=== PATIENT | male | born 1950 | race Hispanic/Latino ===

== ENCOUNTER 2017-03-31 19:52 | Inpatient (IN) | payer OTHER, MEDICARE ==
[~2017-03-31] VITALS: Ht 167.6 cm; Wt 71.7 kg
[2017-03-31 20:27] LABS: MEAN CORPUSCULAR HEMOGLOBIN 29.9 pg (27.0-33.0); MEAN CORPUSCULAR VOLUME 85.4 fL (79-99); PLATELET COUNT (AUTO) 189 K/uL (130-400); RED BLOOD CELL COUNT(AUTO) 3.86 MIL/uL (4.50-6.20); RED CELL DISTRIBUTION WIDTH 14.3 % (11.0-15.5); WHITE BLOOD COUNT (AUTO) 9.8 K/uL (4.8-10.8)
[2017-03-31 20:39] LABS: CARBON DIOXIDE 30 mmol/L (21-32); CHLORIDE 95 mmol/L (101-111); CREATININE 0.8 mg/dL (0.5-1.5); GLOMERULAR FILTR. RATE CALC 103 mL/min (>60); GLUCOSE,RANDOM 203 mg/dL (70-105); POTASSIUM 3.8 mmol/L (3.5-5.1); SODIUM SERUM 132 mmol/L (136-145); UREA NITROGEN, BLOOD 11 mg/dL (7-18)
[2017-03-31] MEDS ORDERED: AZITHROMYCIN 250 MG TABLET PO ONE (20:53)
[2017-03-31 20:54] LABS: ALANINE AMINOTRANSFERASE 53 U/L (12-78); ALBUMIN 2.6 g/dL (3.5-5.0); ASPARTATE AMINOTRANSFERASE 35 U/L (10-37); BILIRUBIN,TOTAL 0.6 mg/dL (0.2-1.0); CREATINE KINASE MB < 0.5 ng/mL (0.5-3.6); CREATINE KINASE, TOTAL 22 U/L (21-232); TOTAL PROTEIN, SERUM 6.8 g/dL (6.0-8.3)
[2017-03-31 21:13] LABS: BAND NEUTROPHILS % (MANUAL) 7 % (0-2); LYMPHOCYTES % (MANUAL) 3 % (22-44); MAN.DIFF COMMENT-IMPRESSION MANUAL DIFFERENTIAL; MONOCYTES % (MANUAL) 4 % (2-9); PLATELET MORPHOLOGY COMMENT ADEQUATE; SEGMENTED NEUTROPHILS % 86 % (40-70)
[2017-03-31 21:14] LABS: B-TYPE NATRIURETIC PEPTIDE 72 pg/mL (0-100)
[2017-03-31] MEDS ORDERED: IPRATROPIUM/ALBUTEROL SULFATE 3 ML SOLUTION IH ONE (21:19)
[2017-03-31] MEDS ORDERED: SODIUM CHLORIDE 0.9% 1000ML 1,000 ML IV ONE (21:46)
[2017-03-31] MEDS ORDERED: METHYLPREDNISOLONE SOD SUCC 125MG/2ML VIAL ONE (21:47)
[2017-03-31 22:05] LABS: APPEARANCE,URINE Clear (CLEAR); BILIRUBIN,URINE Negative (NEGATIVE); COLOR,URINE Dark Yellow (YELLOW); GLUCOSE, URINE (UA) TRACE mg/dL (NEGATIVE); KETONES,URINE Trace mg/dL (NEGATIVE); LEUKOCYTE ESTERASE ,URINE Negative (NEGATIVE); NITRATE,URINE Negative (NEGATIVE); OCCULT BLOOD,URINE Small (NEGATIVE); PH,URINE >=9.0 (5.0-8.0); PROTEIN,URINE 300 (NEGATIVE)
[2017-03-31 22:18] LABS: BACTERIA,URINE Rare /HPF (None Seen); SQUAMOUS EPITHELIAL CELL,UR 0-2 /LPF (0-2); WBC,URINE 0-1 /HPF (0-1)
[2017-03-31] MEDS ORDERED: ACETAMINOPHEN EXTRA STRENGTH 500 MG TABLET ONE (22:20)
[2017-03-31] MEDS ORDERED: CEFTRIAXONE SODIUM 1 GM ONE (22:38)
[2017-04-01] MEDS ORDERED: ACETAMINOPHEN-CODEINE 300/30MG TAB PO PRN (03:45)
[2017-04-01] MEDS ORDERED: HYDRALAZINE HCL 20 MG/ML VIAL IV PRN (03:45)
[2017-04-01] MEDS: IPRATROPIUM/ALBUTEROL SULFATE 3 ML SOLUTION IH SCH ×5 (05:26→23:21)
[2017-04-01 05:58] LABS: BASOPHILS % (AUTO) 0.4 % (0.0-5.0); EOSINOPHILS % (AUTO) 0.1 % (0.0-8.0); HEMATOCRIT 33.8 % (42-54); LYMPHOCYTES % (AUTO) 6.7 % (21.0-51.0); MEAN CORPUSCULAR HEMOGLOBIN 29.3 pg (27.0-33.0); MEAN CORPUSCULAR HGB CONC 34.2 g/dL (32.0-36.0); MEAN CORPUSCULAR VOLUME 85.5 fL (79-99); MONOCYTES % (AUTO) 1.6 % (3.0-13.0); NEUTROPHILS % (AUTO) 91.2 % (40.0-77.0); PLATELET COUNT (AUTO) 207 K/uL (130-400); RED BLOOD CELL COUNT(AUTO) 3.95 MIL/uL (4.50-6.20); RED CELL DISTRIBUTION WIDTH 14.9 % (11.0-15.5); WHITE BLOOD COUNT (AUTO) 7.2 K/uL (4.8-10.8)
[2017-04-01 06:27] LABS: CREATININE 0.7 mg/dL (0.5-1.5); POTASSIUM 4.4 mmol/L (3.5-5.1)
[2017-04-01] MEDS ORDERED: INSULIN LISPRO 100 UNIT/ML 3ML SQ SCH (07:30)
[2017-04-01] MEDS ORDERED: LEVOFLOXACIN 500 MG/D5W 100 ML 100 ML ONE (08:35)
[2017-04-01] MEDS: ENOXAPARIN SODIUM 40 MG/0.4 ML SYRINGE SQ SCH (09:00)
[2017-04-01] MEDS ORDERED: BENZONATATE 100 MG CAPSULE PO ONE (09:54)
[2017-04-01] MEDS ORDERED: PANTOPRAZOLE SODIUM 40 MG TABLET.DR PO ONE (09:55)
[2017-04-01] MEDS ORDERED: ENOXAPARIN SODIUM 40 MG/0.4 ML SYRINGE SQ ONE (09:55)
[2017-04-01 12:30] VITALS: BP 140/80
[2017-04-01] MEDS ORDERED: GLUCAGON 1MG KIT 1 MG ML IM PRN (13:30)
[2017-04-01] MEDS ORDERED: DEXTROSE 50%-WATER 50 ML DISP.SYRIN IV PRN (13:30)
[2017-04-01] MEDS ORDERED: INSULIN HUMULIN R 100 UNIT/ML 3ML ONE (13:33)
[2017-04-01] MEDS: BENZONATATE 100 MG CAPSULE PO SCH ×3 (13:36→20:35)
[2017-04-01 15:46] VITALS: BP 149/79
[2017-04-01] MEDS ORDERED: ATOR40TA69 PO (16:47)
[2017-04-01] MEDS ORDERED: GLIP10TA9 PO (16:47)
[2017-04-01] MEDS ORDERED: SERT100T12 PO (16:47)
[2017-04-01] MEDS ORDERED: LISI10TA7 PO (16:47)
[2017-04-01] MEDS ORDERED: ACET-66 PO (16:47)
[2017-04-01] MEDS ORDERED: INSLAN SQ (16:47)
[2017-04-01] MEDS ORDERED: FLUT1DIS3 IH (16:50)
[2017-04-01] MEDS ORDERED: ALBU8.5H8 IH (16:50)
[2017-04-01] MEDS: INSULIN HUMULIN R 100 UNIT/ML 3ML SQ SCH ×3 (17:00→20:46)
[2017-04-01] MEDS ORDERED: DUONEB IH (17:01)
[2017-04-01] MEDS ORDERED: [UNRECOGNIZED DRUG - OTHER] PO (17:08)
[2017-04-01] MEDS ORDERED: CHLO1TAB PO (17:08)
[2017-04-01] MEDS ORDERED: METF10004 PO (17:17)
[2017-04-01] MEDS ORDERED: FLU VACC QS2017-18 36MOS UP/PF 60 MCG/0.5 ML ML IM SCH (18:45)
[2017-04-01] MEDS ORDERED: PNEUMOCOCCAL VACCINE POLYVALENT 0.5 ML/VIAL [PPV] IM SCH (18:45)
[2017-04-01 19:00] VITALS: BP 146/71
[2017-04-01] MEDS: PANTOPRAZOLE SODIUM 40 MG TABLET.DR PO SCH (20:30)
[2017-04-01] MEDS: AZITHROMYCIN 500MG+NS 250ML 250 ML IV SCH (20:35)
[2017-04-01] MEDS: METHYLPREDNISOLONE SOD SUCC 125MG/2ML VIAL IV SCH ×2 (20:35→21:35)
[2017-04-01 23:00] VITALS: BP 149/79
[2017-04-01] MEDS ORDERED: CEFTRIAXONE SODIUM 1 GM ONE (23:12)
[2017-04-01] MEDS ORDERED: SODIUM CHLORIDE 0.9% 100 ML IV ONE (23:16)
[2017-04-01] MEDS: CEFTRIAXONE 1GM/D5W 50ML 50 ML IV SCH (23:19)
[2017-04-02] MEDS: IPRATROPIUM/ALBUTEROL SULFATE 3 ML SOLUTION IH SCH ×6 (02:12→21:21)
[2017-04-02 03:00] VITALS: BP 136/65
[2017-04-02] MEDS: INSULIN HUMULIN R 100 UNIT/ML 3ML SQ SCH ×7 (05:50→20:12)
[2017-04-02 08:05] VITALS: BP 143/74
[2017-04-02] MEDS: BENZONATATE 100 MG CAPSULE PO SCH ×3 (08:49→20:05)
[2017-04-02] MEDS: METHYLPREDNISOLONE SOD SUCC 125MG/2ML VIAL IV SCH ×2 (08:49→20:04)
[2017-04-02] MEDS: ENOXAPARIN SODIUM 40 MG/0.4 ML SYRINGE SQ SCH (08:51)
[2017-04-02] MEDS: PANTOPRAZOLE SODIUM 40 MG TABLET.DR PO SCH (08:51)
[2017-04-02 11:54] VITALS: BP 157/88
[2017-04-02 16:28] VITALS: BP 155/86
[2017-04-02 19:00] VITALS: BP 164/74
[2017-04-02] MEDS: AZITHROMYCIN 500MG+NS 250ML 250 ML IV SCH (20:04)
[2017-04-02] MEDS: CEFTRIAXONE 1GM/D5W 50ML 50 ML IV SCH (20:05)
[2017-04-02 23:00] VITALS: BP 154/92
[2017-04-03] MEDS: IPRATROPIUM/ALBUTEROL SULFATE 3 ML SOLUTION IH SCH ×6 (01:53→22:00)
[2017-04-03 03:00] VITALS: BP 162/80
[2017-04-03 05:50] LABS: MEAN CORPUSCULAR HEMOGLOBIN 29.5 pg (27.0-33.0); MEAN CORPUSCULAR VOLUME 86.6 fL (79-99); PLATELET COUNT (AUTO) 235 K/uL (130-400); RED CELL DISTRIBUTION WIDTH 14.7 % (11.0-15.5); WHITE BLOOD COUNT (AUTO) 5.2 K/uL (4.8-10.8)
[2017-04-03 05:56] LABS: CREATININE 0.6 mg/dL (0.5-1.5); POTASSIUM 4.2 mmol/L (3.5-5.1)
[2017-04-03] MEDS: INSULIN HUMULIN R 100 UNIT/ML 3ML SQ SCH ×6 (06:17→20:33)
[2017-04-03 08:00] VITALS: BP_SYST 154; BP_SYST 155; BP_DIAS 77; BP_DIAS 88
[2017-04-03] MEDS: BENZONATATE 100 MG CAPSULE PO SCH ×3 (09:19→20:21)
[2017-04-03] MEDS: PANTOPRAZOLE SODIUM 40 MG TABLET.DR PO SCH (09:19)
[2017-04-03] MEDS: METHYLPREDNISOLONE SOD SUCC 125MG/2ML VIAL IV SCH (09:19)
[2017-04-03] MEDS: ENOXAPARIN SODIUM 40 MG/0.4 ML SYRINGE SQ SCH (09:20)
[2017-04-03 11:00] VITALS: BP 155/77
[2017-04-03] MEDS ORDERED: ACETAMINOPHEN EXTRA STRENGTH 500 MG TABLET PO PRN (11:00)
[2017-04-03 16:00] VITALS: BP 121/79
[2017-04-03] MEDS: METFORMIN HCL 500 MG TAB.SR.24H PO SCH (17:18)
[2017-04-03 19:00] VITALS: BP 151/74
[2017-04-03] MEDS ORDERED: INSULIN GLARGINE 100 UNITS/ML 10 ML VIAL SQ ONE (20:12)
[2017-04-03] MEDS: AZITHROMYCIN 500MG+NS 250ML 250 ML IV SCH (20:21)
[2017-04-03] MEDS: METHYLPREDNISOLONE SOD SUCC 40MG/ML 1ML IVP SCH (20:21)
[2017-04-03] MEDS ORDERED: INSULIN GLARGINE 100 UNITS/ML 10 ML VIAL SQ SCH (21:00)
[2017-04-03] MEDS ORDERED: CEFTRIAXONE SODIUM 1 GM IVP SCH (21:00)
[2017-04-03] MEDS ORDERED: ATORVASTATIN CALCIUM 40 MG TABLET PO SCH (21:00)
[2017-04-03 23:00] VITALS: BP 147/79
[2017-04-04] MEDS ORDERED: ALBUTEROL SULFATE 0.083% 2.5 MG/3 ML INH IH ONE (01:53)
[2017-04-04] MEDS ORDERED: IPRATROPIUM 0.5 MG/2.5 ML INH IH ONE (01:53)
[2017-04-04] MEDS: IPRATROPIUM/ALBUTEROL SULFATE 3 ML SOLUTION IH SCH ×3 (01:59→10:39)
[2017-04-04 03:00] VITALS: BP 140/69
[2017-04-04] MEDS: INSULIN HUMULIN R 100 UNIT/ML 3ML SQ SCH ×4 (06:14→12:55)
[2017-04-04 08:00] VITALS: BP 134/63
[2017-04-04] MEDS: METFORMIN HCL 500 MG TAB.SR.24H PO SCH (08:34)
[2017-04-04] MEDS: BENZONATATE 100 MG CAPSULE PO SCH (08:34)
[2017-04-04] MEDS: PANTOPRAZOLE SODIUM 40 MG TABLET.DR PO SCH (08:34)
[2017-04-04] MEDS: ENOXAPARIN SODIUM 40 MG/0.4 ML SYRINGE SQ SCH (08:35)
[2017-04-04] MEDS: METHYLPREDNISOLONE SOD SUCC 40MG/ML 1ML IVP SCH (08:35)
[2017-04-04] MEDS ORDERED: SERTRALINE HCL 50 MG TABLET PO SCH (09:00)
[2017-04-04] MEDS ORDERED: LISINOPRIL 10 MG TABLET PO SCH (09:00)
[2017-04-04 12:08] VITALS: BP 147/65
== END 2017-04-04 14:00 | disposition home or self-care (01) | DRG 193 ==
LOC: EDH 19:52 → EDHIP 23:07 → 3BH 04-01 12:22
PROVIDERS: ADMIT Family Medicine; ATTEND Family Medicine
PROC: 3E0234Z Introduction of Serum, Toxoid and Vaccine into Muscle, Percutaneous Approach (ICD-10-PCS; principal; 2017-04-01)
DX: J18.9 Pneumonia, unspecified organism (principal); J96.20 Acute and chronic respiratory failure, unspecified whether with hypoxia or hypercapnia; Z99.81 Dependence on supplemental oxygen; J44.0 Chronic obstructive pulmonary disease with (acute) lower respiratory infection; J44.1 Chronic obstructive pulmonary disease with (acute) exacerbation; E87.1 Hypo-osmolality and hyponatremia; J20.9 Acute bronchitis, unspecified; I25.10 Atherosclerotic heart disease of native coronary artery without angina pectoris; Z95.1 Presence of aortocoronary bypass graft; E11.65 Type 2 diabetes mellitus with hyperglycemia; F17.200 Nicotine dependence, unspecified, uncomplicated; Z88.0 Allergy status to penicillin; Z89.422 Acquired absence of other left toe(s); Z23 Encounter for immunization
CPT/HCPCS: 36415; 71010; 80048; 80053; 81001; 82550; 82553; 82947; 82948; 83605; 83880; 84484; 85025; 85027; 87040; 87804; 90732; 93005; 94640; 94664; A4218; G0008; G0009; J0456; J0696; J1650; J1815; J1956; J2920; J2930; J7030; Q2038

== ENCOUNTER 2018-03-25 10:45 | Emergency (ER) | payer OTHER, MEDICARE ==
[~2018-03-25 10:45] MED LIST: ACET-66 PO; ALBU8.5H8 IH; ATOR40TA69 PO; CHLO1TAB PO; DUONEB IH; FLUT1DIS3 IH; GLIP10TA9 PO; INSLAN SQ; LISI10TA7 PO; METF-446 PO; SERT100T12 PO; [UNRECOGNIZED DRUG - OTHER] PO
[2018-03-25 11:22] LABS: BASOPHILS % (AUTO) 0.9 % (0.0-5.0); EOSINOPHILS % (AUTO) 1.8 % (0.0-8.0); HEMATOCRIT 42.7 % (42-54); LYMPHOCYTES % (AUTO) 19.9 % (21.0-51.0); MEAN CORPUSCULAR HEMOGLOBIN 28.7 pg (27.0-33.0); MEAN CORPUSCULAR HGB CONC 32.8 g/dL (32.0-36.0); MEAN CORPUSCULAR VOLUME 87.7 fL (79-99); MONOCYTES % (AUTO) 9.8 % (3.0-13.0); NEUTROPHILS % (AUTO) 67.6 % (40.0-77.0); PLATELET COUNT (AUTO) 126 K/uL (130-400); RED BLOOD CELL COUNT(AUTO) 4.86 MIL/uL (4.50-6.20); RED CELL DISTRIBUTION WIDTH 14.2 % (11.0-15.5); WHITE BLOOD COUNT (AUTO) 5.5 K/uL (4.8-10.8)
[2018-03-25 11:42] LABS: CREATININE 0.9 mg/dL (0.5-1.5); POTASSIUM 4.9 mmol/L (3.5-5.1)
[2018-03-25 11:44] LABS: INR 0.99 (0.85-1.15); PARTIAL THROMBOPLASTIN TIME 29.9 SEC (26.3-35.5); PROTHROMBIN TIME 10.4 SEC (9.6-11.6)
[2018-03-25 11:48] LABS: ALBUMIN 3.7 g/dL (3.5-5.0); BILIRUBIN,TOTAL 0.5 mg/dL (0.2-1.0); TOTAL PROTEIN, SERUM 7.5 g/dL (6.0-8.3)
[2018-03-25 11:53] LABS: B-TYPE NATRIURETIC PEPTIDE 39 pg/mL (0-100)
[2018-03-25] MEDS ORDERED: METHYLPREDNISOLONE SOD SUCC 125MG/2ML VIAL ONE (12:39)
[2018-03-25] MEDS ORDERED: IPRATROPIUM/ALBUTEROL SULFATE 3 ML SOLUTION IH ONE (12:43)
[2018-03-25] MEDS ORDERED: LEVOFLOXACIN 500 MG TABLET ONE (15:59)
== END 2018-03-25 16:52 | disposition home or self-care (01) ==
LOC: EDH 10:45
DX: J44.1 Chronic obstructive pulmonary disease with (acute) exacerbation (principal); Z88.0 Allergy status to penicillin; Z72.0 Tobacco use
CPT/HCPCS: 36415; 71045; 80053; 82550; 83880; 84484; 85025; 85610; 85730; 93005; 94640; 96374; 99284; J2930

== ENCOUNTER 2022-03-09 12:34 | Inpatient (IN) | payer OTHER, MEDICARE ==
[~2022-03-09] VITALS: Ht 162.6 cm; Wt 70.9 kg
[~2022-03-09 12:34] MED LIST changes: +LISI10TA24 PO; -LISI10TA7 PO; +SERT-440 PO; -SERT100T12 PO
[2022-03-09 13:48] LABS: BASOPHILS % (AUTO) 0.3 % (0.0-5.0); EOSINOPHILS % (AUTO) 0.3 % (0.0-8.0); HEMATOCRIT 39.7 % (42-54); MEAN CORPUSCULAR HEMOGLOBIN 27.8 pg (27.0-33.0); MEAN CORPUSCULAR HGB CONC 32.5 g/dL (32.0-36.0); MEAN CORPUSCULAR VOLUME 85.6 fL (79-99); MONOCYTES % (AUTO) 10.9 % (3.0-13.0); NEUTROPHILS % (AUTO) 82.1 % (40.0-77.0); PLATELET COUNT (AUTO) 117 K/uL (130-400); RED BLOOD CELL COUNT(AUTO) 4.64 MIL/uL (4.50-6.20); RED CELL DISTRIBUTION WIDTH 14.7 % (11.0-15.5); WHITE BLOOD COUNT (AUTO) 6.7 K/uL (4.8-10.8)
[2022-03-09 13:55] LABS: CREATININE 0.9 mg/dL (0.5-1.5); POTASSIUM 4.6 mmol/L (3.5-5.1)
[2022-03-09] MEDS ORDERED: LEVOFLOXACIN 500 MG TABLET PO SCH (14:00)
[2022-03-09] MEDS ORDERED: IPRATROPIUM/ALBUTEROL SULFATE 3 ML SOLUTION IH ONE ×2 (14:00)
[2022-03-09] MEDS ORDERED: SOLU-MEDROL 125MG VIAL IVP ONE (14:00)
[2022-03-09 14:04] LABS: ALBUMIN 3.5 g/dL (3.5-5.0); TOTAL PROTEIN, SERUM 7.4 g/dL (6.0-8.3)
[2022-03-09 18:50] LABS: ABG HCO3 29.6 mmol/L (21.0-28.0); ABG OXYGEN SATURATION 95.1 % (95.0-99.0); ABG PCO2 58 mmHg (35-48)
[2022-03-09] MEDS ORDERED: ONDANSETRON 4MG INJ IV PRN (19:00)
[2022-03-09] MEDS ORDERED: LACTULOSE 20 GM/30 ML UDCUP PO PRN (19:00)
[2022-03-09] MEDS ORDERED: FUROSEMIDE 40MG VIAL IV ONE (19:00)
[2022-03-09] MEDS ORDERED: ACETAMINOPHEN 325 MG TAB PO PRN ×2 (19:00)
[2022-03-09 19:01] LABS: APPEARANCE,URINE CLEAR (CLEAR); BILIRUBIN,URINE NEGATIVE (NEGATIVE); COLOR,URINE YELLOW (YELLOW); GLUCOSE, URINE (UA) 70 mg/dL (NEGATIVE); KETONES,URINE NEGATIVE (NEGATIVE); LEUKOCYTE ESTERASE ,URINE NEGATIVE Leu/uL (NEGATIVE); NITRATE,URINE NEGATIVE (NEGATIVE); OCCULT BLOOD,URINE MODERATE (NEGATIVE); PH,URINE 5.5 (5.0-8.0); PROTEIN,URINE 100 mg/dL (NEGATIVE); UROBILINOGEN,URINE 0.2 mg/dL (0.2-1.0)
[2022-03-09 19:07] LABS: BACTERIA,URINE RARE /HPF (None Seen); MUCUS,URINE RARE LPF (None Seen); OTHER CASTS, URINE 1 /LPF (None Seen); SQUAMOUS EPITHELIAL CELL,UR RARE /HPF (0-2); WBC,URINE 0-1 /HPF (0-1)
[2022-03-09] MEDS: FAMOTIDINE 20MG TAB PO SCH (20:26)
[2022-03-09] MEDS: LEVOFLOXACIN 500 MG/D5W 100 ML 100 ML IV SCH (20:26)
[2022-03-09] MEDS: OSELTAMIVIR PHOSPHATE 75 MG CAP PO SCH (20:26)
[2022-03-09] MEDS: SOLU-MEDROL 40MG VIAL IVP SCH (20:26)
[2022-03-09] MEDS: INSULIN HUMULIN R 100 UNIT/ML 3ML SQ SCH (20:44)
[2022-03-09] MEDS ORDERED: ATOR20TA65 PO (20:49)
[2022-03-09] MEDS ORDERED: GLIP5TAB11 PO (20:49)
[2022-03-09] MEDS ORDERED: MONT-39 PO (20:49)
[2022-03-09] MEDS ORDERED: IPRA0.2S54 IH (20:52)
[2022-03-09] MEDS: IPRATROPIUM/ALBUTEROL SULFATE 3 ML SOLUTION IH SCH (21:03)
[2022-03-10] MEDS: SOLU-MEDROL 40MG VIAL IVP SCH ×4 (01:11→19:00)
[2022-03-10] MEDS: IPRATROPIUM/ALBUTEROL SULFATE 3 ML SOLUTION IH SCH ×5 (01:20→22:36)
[2022-03-10 06:29] LABS: HEMATOCRIT 38.2 % (42-54); LYMPHOCYTES % (AUTO) 5.7 % (21.0-51.0); MEAN CORPUSCULAR HEMOGLOBIN 27.7 pg (27.0-33.0); MEAN CORPUSCULAR HGB CONC 32.5 g/dL (32.0-36.0); MEAN CORPUSCULAR VOLUME 85.5 fL (79-99); MONOCYTES % (AUTO) 4.2 % (3.0-13.0); NEUTROPHILS % (AUTO) 89.7 % (40.0-77.0); PLATELET COUNT (AUTO) 112 K/uL (130-400); RED BLOOD CELL COUNT(AUTO) 4.47 MIL/uL (4.50-6.20); RED CELL DISTRIBUTION WIDTH 14.4 % (11.0-15.5); WHITE BLOOD COUNT (AUTO) 4.5 K/uL (4.8-10.8)
[2022-03-10 06:33] LABS: CREATININE 1.1 mg/dL (0.5-1.5); POTASSIUM 4.7 mmol/L (3.5-5.1)
[2022-03-10] MEDS: INSULIN HUMULIN R 100 UNIT/ML 3ML SQ SCH ×6 (06:45→21:16)
[2022-03-10 09:00] VITALS: BP 119/64
[2022-03-10] MEDS: ADVIAR IH SCH (09:00)
[2022-03-10] MEDS: FAMOTIDINE 20MG TAB PO SCH ×2 (09:10→21:12)
[2022-03-10] MEDS: ENOXAPARIN SODIUM 40 MG/0.4 ML SYRINGE SQ SCH (09:10)
[2022-03-10] MEDS: BUPROPION HCL 150 MG TABLET.SA PO SCH (09:10)
[2022-03-10] MEDS: OSELTAMIVIR PHOSPHATE 75 MG CAP PO SCH ×2 (09:10→21:12)
[2022-03-10] MEDS: NICOTINE 14 MG/ 24 HR PATCH TD SCH (10:17)
[2022-03-10] MEDS: LISINOPRIL 10 MG TABLET PO SCH (10:18)
[2022-03-10] MEDS: ATORVASTATIN 20 MG TABLET PO SCH (10:18)
[2022-03-10] MEDS: MONTELUKAST SODIUM 10 MG TAB PO SCH (10:18)
[2022-03-10] MEDS: SERTRALINE HCL 50 MG TABLET PO SCH (10:18)
[2022-03-10 11:00] VITALS: BP 168/53
[2022-03-10] MEDS ORDERED: VANCOMYCIN PROTOCOL PER PHARMACY IV SCH (11:00)
[2022-03-10] MEDS: VANCOMYCIN 1G/250ML KIT 250 ML IV SCH ×2 (13:26→21:12)
[2022-03-10 16:00] VITALS: BP 118/55
[2022-03-10] MEDS: LEVOFLOXACIN 500 MG/D5W 100 ML 100 ML IV SCH (19:30)
[2022-03-10] MEDS ORDERED: 0.9% NACL 250ML 250 ML ONE (21:06)
[2022-03-10 21:15] VITALS: BP 110/59
[2022-03-10] MEDS: INSULIN GLARGINE 100 UNITS/ML 10 ML VIAL SQ SCH (21:15)
[2022-03-10 23:42] VITALS: BP 115/63
[2022-03-11] MEDS: SOLU-MEDROL 40MG VIAL IVP SCH ×4 (02:06→18:08)
[2022-03-11] MEDS: IPRATROPIUM/ALBUTEROL SULFATE 3 ML SOLUTION IH SCH ×6 (02:22→22:55)
[2022-03-11 04:37] VITALS: BP 102/71
[2022-03-11 05:08] LABS: HEMATOCRIT 34.4 % (42-54); LYMPHOCYTES % (AUTO) 7.2 % (21.0-51.0); MEAN CORPUSCULAR HEMOGLOBIN 28.1 pg (27.0-33.0); MEAN CORPUSCULAR HGB CONC 32.8 g/dL (32.0-36.0); MEAN CORPUSCULAR VOLUME 85.6 fL (79-99); MONOCYTES % (AUTO) 9.7 % (3.0-13.0); NEUTROPHILS % (AUTO) 82.6 % (40.0-77.0); PLATELET COUNT (AUTO) 114 K/uL (130-400); RED BLOOD CELL COUNT(AUTO) 4.02 MIL/uL (4.50-6.20); RED CELL DISTRIBUTION WIDTH 14.1 % (11.0-15.5); WHITE BLOOD COUNT (AUTO) 6.4 K/uL (4.8-10.8)
[2022-03-11 05:19] LABS: CREATININE 0.7 mg/dL (0.5-1.5); MAGNESIUM 2.2 mg/dL (1.80-2.40); PHOSPHORUS 4.3 mg/dL (2.5-4.9); POTASSIUM 5.2 mmol/L (3.5-5.1)
[2022-03-11] MEDS: INSULIN HUMULIN R 100 UNIT/ML 3ML SQ SCH ×7 (05:23→20:36)
[2022-03-11 05:55] LABS: B-TYPE NATRIURETIC PEPTIDE < 5 pg/mL (0-100)
[2022-03-11 07:05] VITALS: BP 106/57
[2022-03-11] MEDS: VANCOMYCIN 1G/250ML KIT 250 ML IV SCH ×2 (09:38→20:36)
[2022-03-11] MEDS: ATORVASTATIN 20 MG TABLET PO SCH (09:39)
[2022-03-11] MEDS: MONTELUKAST SODIUM 10 MG TAB PO SCH (09:39)
[2022-03-11] MEDS: BUPROPION HCL 150 MG TABLET.SA PO SCH (09:39)
[2022-03-11] MEDS: FAMOTIDINE 20MG TAB PO SCH ×2 (09:39→19:53)
[2022-03-11] MEDS: NICOTINE 14 MG/ 24 HR PATCH TD SCH (09:39)
[2022-03-11] MEDS: SERTRALINE HCL 50 MG TABLET PO SCH (09:39)
[2022-03-11] MEDS: OSELTAMIVIR PHOSPHATE 75 MG CAP PO SCH ×2 (09:39→19:53)
[2022-03-11] MEDS: LISINOPRIL 10 MG TABLET PO SCH (09:40)
[2022-03-11] MEDS: ENOXAPARIN SODIUM 40 MG/0.4 ML SYRINGE SQ SCH (09:40)
[2022-03-11] MEDS: ADVIAR IH SCH (09:41)
[2022-03-11 11:05] VITALS: BP 101/48
[2022-03-11 15:00] VITALS: BP 119/63
[2022-03-11] MEDS: LEVOFLOXACIN 500 MG/D5W 100 ML 100 ML IV SCH (19:53)
[2022-03-11 20:00] VITALS: BP 120/59
[2022-03-11] MEDS: INSULIN GLARGINE 100 UNITS/ML 10 ML VIAL SQ SCH (20:35)
[2022-03-12 00:37] VITALS: BP 113/59
[2022-03-12] MEDS: IPRATROPIUM/ALBUTEROL SULFATE 3 ML SOLUTION IH SCH ×6 (02:53→23:10)
[2022-03-12 04:00] VITALS: BP 122/56
[2022-03-12 05:07] LABS: HEMATOCRIT 33.3 % (42-54); LYMPHOCYTES % (AUTO) 9.2 % (21.0-51.0); MEAN CORPUSCULAR HEMOGLOBIN 28.1 pg (27.0-33.0); MEAN CORPUSCULAR VOLUME 85.2 fL (79-99); NEUTROPHILS % (AUTO) 83.3 % (40.0-77.0); PLATELET COUNT (AUTO) 108 K/uL (130-400); RED BLOOD CELL COUNT(AUTO) 3.91 MIL/uL (4.50-6.20); RED CELL DISTRIBUTION WIDTH 14.2 % (11.0-15.5); WHITE BLOOD COUNT (AUTO) 4.3 K/uL (4.8-10.8)
[2022-03-12] MEDS: SOLU-MEDROL 40MG VIAL IVP SCH ×3 (05:13→15:45)
[2022-03-12] MEDS: INSULIN HUMULIN R 100 UNIT/ML 3ML SQ SCH ×7 (05:28→20:05)
[2022-03-12 05:37] LABS: CREATININE 0.6 mg/dL (0.5-1.5); MAGNESIUM 1.9 mg/dL (1.80-2.40); PHOSPHORUS 3.9 mg/dL (2.5-4.9); POTASSIUM 4.7 mmol/L (3.5-5.1)
[2022-03-12 05:38] LABS: B-TYPE NATRIURETIC PEPTIDE 33 pg/mL (0-100)
[2022-03-12 07:00] VITALS: BP 126/60
[2022-03-12] MEDS: ADVIAR IH SCH (09:00)
[2022-03-12] MEDS: ENOXAPARIN SODIUM 40 MG/0.4 ML SYRINGE SQ SCH (10:27)
[2022-03-12] MEDS: SERTRALINE HCL 50 MG TABLET PO SCH (10:28)
[2022-03-12] MEDS: ATORVASTATIN 20 MG TABLET PO SCH (10:28)
[2022-03-12] MEDS: NICOTINE 14 MG/ 24 HR PATCH TD SCH (10:28)
[2022-03-12] MEDS: BUPROPION HCL 150 MG TABLET.SA PO SCH (10:28)
[2022-03-12] MEDS: FAMOTIDINE 20MG TAB PO SCH ×2 (10:28→19:56)
[2022-03-12] MEDS: OSELTAMIVIR PHOSPHATE 75 MG CAP PO SCH ×2 (10:28→19:56)
[2022-03-12] MEDS: MONTELUKAST SODIUM 10 MG TAB PO SCH (10:28)
[2022-03-12] MEDS: VANCOMYCIN 1G/250ML KIT 250 ML IV SCH ×2 (10:40→19:56)
[2022-03-12] MEDS: LISINOPRIL 10 MG TABLET PO SCH (10:41)
[2022-03-12 11:00] VITALS: BP 144/68
[2022-03-12 15:05] VITALS: BP 112/73
[2022-03-12] MEDS: LEVOFLOXACIN 500 MG/D5W 100 ML 100 ML IV SCH (19:56)
[2022-03-12 20:00] VITALS: BP 145/58
[2022-03-12] MEDS: INSULIN GLARGINE 100 UNITS/ML 10 ML VIAL SQ SCH (20:05)
[2022-03-13] VITALS: BP 108/55
[2022-03-13] MEDS: IPRATROPIUM/ALBUTEROL SULFATE 3 ML SOLUTION IH SCH ×6 (02:21→22:43)
[2022-03-13 04:00] VITALS: BP 118/52
[2022-03-13] MEDS: SOLU-MEDROL 40MG VIAL IVP SCH ×3 (04:55→21:12)
[2022-03-13] MEDS: INSULIN HUMULIN R 100 UNIT/ML 3ML SQ SCH ×7 (06:11→19:47)
[2022-03-13 07:05] VITALS: BP 116/74
[2022-03-13] MEDS: ADVIAR IH SCH (09:00)
[2022-03-13] MEDS: ENOXAPARIN SODIUM 40 MG/0.4 ML SYRINGE SQ SCH (09:43)
[2022-03-13] MEDS: NICOTINE 14 MG/ 24 HR PATCH TD SCH (09:44)
[2022-03-13] MEDS: SERTRALINE HCL 50 MG TABLET PO SCH (09:45)
[2022-03-13] MEDS: ATORVASTATIN 20 MG TABLET PO SCH (09:46)
[2022-03-13] MEDS: LISINOPRIL 10 MG TABLET PO SCH (09:46)
[2022-03-13] MEDS: MONTELUKAST SODIUM 10 MG TAB PO SCH (09:46)
[2022-03-13] MEDS: OSELTAMIVIR PHOSPHATE 75 MG CAP PO SCH ×2 (09:46→19:34)
[2022-03-13] MEDS: FAMOTIDINE 20MG TAB PO SCH ×2 (09:46→19:34)
[2022-03-13] MEDS: VANCOMYCIN 1.25 GM/250 ML BAG 250 ML IV SCH ×2 (10:23→21:10)
[2022-03-13 11:05] VITALS: BP 111/78
[2022-03-13 15:05] VITALS: BP 129/69
[2022-03-13] MEDS: LEVOFLOXACIN 500 MG/D5W 100 ML 100 ML IV SCH (19:34)
[2022-03-13] MEDS: INSULIN GLARGINE 100 UNITS/ML 10 ML VIAL SQ SCH (19:49)
[2022-03-13 21:11] VITALS: BP 129/64
[2022-03-14 00:14] VITALS: BP 126/60
[2022-03-14] MEDS: IPRATROPIUM/ALBUTEROL SULFATE 3 ML SOLUTION IH SCH ×6 (02:22→22:22)
[2022-03-14 04:40] VITALS: BP 108/60
[2022-03-14] MEDS: INSULIN HUMULIN R 100 UNIT/ML 3ML SQ SCH ×7 (05:25→20:36)
[2022-03-14] MEDS: SOLU-MEDROL 40MG VIAL IVP SCH ×3 (06:10→22:31)
[2022-03-14 06:29] LABS: HEMATOCRIT 35.7 % (42-54); LYMPHOCYTES % (AUTO) 10.8 % (21.0-51.0); MEAN CORPUSCULAR HGB CONC 32.8 g/dL (32.0-36.0); MEAN CORPUSCULAR VOLUME 85.4 fL (79-99); MONOCYTES % (AUTO) 3.6 % (3.0-13.0); NEUTROPHILS % (AUTO) 85.1 % (40.0-77.0); PLATELET COUNT (AUTO) 115 K/uL (130-400); RED BLOOD CELL COUNT(AUTO) 4.18 MIL/uL (4.50-6.20); RED CELL DISTRIBUTION WIDTH 13.8 % (11.0-15.5); WHITE BLOOD COUNT (AUTO) 4.2 K/uL (4.8-10.8)
[2022-03-14 06:37] LABS: HEMOGLOBIN A1C 7.6 % (4.0-6.0)
[2022-03-14 06:54] LABS: CREATININE 0.7 mg/dL (0.5-1.5); POTASSIUM 5.2 mmol/L (3.5-5.1); TOTAL PROTEIN, SERUM 6.3 g/dL (6.0-8.3)
[2022-03-14 08:00] VITALS: BP 112/74
[2022-03-14] MEDS: ADVIAR IH SCH (09:00)
[2022-03-14] MEDS: MONTELUKAST SODIUM 10 MG TAB PO SCH (09:40)
[2022-03-14] MEDS: VANCOMYCIN 1.25 GM/250 ML BAG 250 ML IV SCH (09:40)
[2022-03-14] MEDS: OSELTAMIVIR PHOSPHATE 75 MG CAP PO SCH (09:41)
[2022-03-14] MEDS: SERTRALINE HCL 50 MG TABLET PO SCH (09:41)
[2022-03-14] MEDS: LISINOPRIL 10 MG TABLET PO SCH (09:41)
[2022-03-14] MEDS: ATORVASTATIN 20 MG TABLET PO SCH (09:41)
[2022-03-14] MEDS: ENOXAPARIN SODIUM 40 MG/0.4 ML SYRINGE SQ SCH (09:41)
[2022-03-14] MEDS: FAMOTIDINE 20MG TAB PO SCH ×2 (09:42→20:32)
[2022-03-14] MEDS: NICOTINE 14 MG/ 24 HR PATCH TD SCH (09:42)
[2022-03-14 11:59] VITALS: BP 136/58
[2022-03-14 16:00] VITALS: BP 119/62
[2022-03-14] MEDS: LEVOFLOXACIN 500 MG/D5W 100 ML 100 ML IV SCH (20:32)
[2022-03-14] MEDS: INSULIN GLARGINE 100 UNITS/ML 10 ML VIAL SQ SCH (20:37)
[2022-03-14 20:38] VITALS: BP 128/62
[2022-03-15 00:16] VITALS: BP 101/56
[2022-03-15] MEDS: IPRATROPIUM/ALBUTEROL SULFATE 3 ML SOLUTION IH SCH ×4 (02:11→14:00)
[2022-03-15 03:51] VITALS: BP 110/56
[2022-03-15] MEDS: SOLU-MEDROL 40MG VIAL IVP SCH ×2 (05:38→14:26)
[2022-03-15] MEDS: INSULIN HUMULIN R 100 UNIT/ML 3ML SQ SCH ×6 (05:57→16:29)
[2022-03-15] MEDS ORDERED: IPRATROPIUM/ALBUTEROL SULFATE 3 ML SOLUTION IH ONE (06:13)
[2022-03-15 08:00] VITALS: BP 107/51
[2022-03-15] MEDS: ADVIAR IH SCH (08:46)
[2022-03-15] MEDS: ATORVASTATIN 20 MG TABLET PO SCH (08:47)
[2022-03-15] MEDS: LISINOPRIL 10 MG TABLET PO SCH (08:47)
[2022-03-15] MEDS: NICOTINE 14 MG/ 24 HR PATCH TD SCH (08:47)
[2022-03-15] MEDS: MONTELUKAST SODIUM 10 MG TAB PO SCH (08:47)
[2022-03-15] MEDS: SERTRALINE HCL 50 MG TABLET PO SCH (08:47)
[2022-03-15] MEDS: FAMOTIDINE 20MG TAB PO SCH (08:48)
[2022-03-15] MEDS: ENOXAPARIN SODIUM 40 MG/0.4 ML SYRINGE SQ SCH (08:48)
[2022-03-15 11:57] VITALS: BP 113/60
[2022-03-15 16:00] VITALS: BP 133/70
[2022-03-15] MEDS ORDERED: LEVO-70 PO (18:18)
[2022-03-15] MEDS ORDERED: PRED20TA3 PO (18:18)
== END 2022-03-15 19:35 | disposition home or self-care (01) | DRG 193 ==
LOC: EDH 12:34 → EDHIP 18:35 → 4AH 03-10 08:30
PROVIDERS: ADMIT Internal Medicine; ATTEND Internal Medicine
PROC: 5A09357 Assistance with Respiratory Ventilation, Less than 24 Consecutive Hours, Continuous Positive Airway Pressure (ICD-10-PCS; principal; 2022-03-10)
PROC: 5A09357 Assistance with Respiratory Ventilation, Less than 24 Consecutive Hours, Continuous Positive Airway Pressure (ICD-10-PCS; 2022-03-11)
PROC: 5A09357 Assistance with Respiratory Ventilation, Less than 24 Consecutive Hours, Continuous Positive Airway Pressure (ICD-10-PCS; 2022-03-12)
PROC: 5A09357 Assistance with Respiratory Ventilation, Less than 24 Consecutive Hours, Continuous Positive Airway Pressure (ICD-10-PCS; 2022-03-14)
PROC: 5A09357 Assistance with Respiratory Ventilation, Less than 24 Consecutive Hours, Continuous Positive Airway Pressure (ICD-10-PCS; 2022-03-15)
DX: J10.00 Influenza due to other identified influenza virus with unspecified type of pneumonia (principal); J96.02 Acute respiratory failure with hypercapnia; J44.1 Chronic obstructive pulmonary disease with (acute) exacerbation; J44.0 Chronic obstructive pulmonary disease with (acute) lower respiratory infection; J69.0 Pneumonitis due to inhalation of food and vomit; Z20.822 Contact with and (suspected) exposure to COVID-19; F17.210 Nicotine dependence, cigarettes, uncomplicated; E11.9 Type 2 diabetes mellitus without complications; I10 Essential (primary) hypertension; F32.A Depression, unspecified; I25.10 Atherosclerotic heart disease of native coronary artery without angina pectoris; E78.00 Pure hypercholesterolemia, unspecified; Z79.4 Long term (current) use of insulin; Z79.84 Long term (current) use of oral hypoglycemic drugs; Z83.3 Family history of diabetes mellitus; Z88.0 Allergy status to penicillin; Z95.1 Presence of aortocoronary bypass graft
CPT/HCPCS: 36415; 36600; 71045; 80048; 80053; 80202; 81001; 82803; 82948; 83036; 83735; 83880; 84100; 84145; 84484; 85025; 87040; 87071; 87077; 87186; 87205; 87635; 87804; 92610; 93005; 93306; 93356; 94640; 94660; 94664; C9803; G0378; J1650; J1815; J1940; J1956; J2920; J2930; J3370; J7050

== ENCOUNTER 2024-10-15 16:14 | Observation (INO) | payer OTHER, MEDICARE ==
[~2024-10-15] VITALS: Ht 170.2 cm; Wt 66.1 kg
[~2024-10-15 16:14] MED LIST changes: -ACET-66 PO; +ALBU2.5V2; -ALBU8.5H8 IH; +AMAN-23 PO; +APIX5TAB PO; +ATOR10 PO; -ATOR40TA69 PO; +BUPR100T13 PO; -CHLO1TAB PO; -DUONEB IH; +FAMO20TA8 PO; -FLUT1DIS3 IH; -GLIP10TA9 PO; -LISI10TA24 PO; +LISI2.5T13 PO; -METF-446 PO; +METO25TA6 PO; +NITR0.4T50 SL; +PRED20TA3 PO; -[UNRECOGNIZED DRUG - OTHER] PO
[2024-10-15 16:54] LABS: IMMATURE GRANULOCYTE ABSOLUTE 0.02 K/uL (0-1); NUCLEATED RED BLOOD CELLS 0.0 % (0.0-0.19); PLATELET COUNT (AUTO) 120 K/uL (130-400); RED BLOOD CELL COUNT(AUTO) 3.96 MIL/uL (4.50-6.20); RED CELL DISTRIBUTION WIDTH 14.5 % (11.0-15.5); WHITE BLOOD COUNT (AUTO) 4.5 K/uL (4.8-10.8)
[2024-10-15 17:08] LABS: CREATININE 1.0 mg/dL (0.5-1.3); GLOMERULAR FILTR. RATE CALC 79 mL/min (>90); GLUCOSE,RANDOM 70 mg/dL (70-105); SODIUM SERUM 145 mmol/L (136-145); UREA NITROGEN, BLOOD 26 mg/dL (7-18)
[2024-10-15 17:18] LABS: ALCOHOL, BLOOD < 3 mg/dL (0-10)
--- NOTE | 2024-10-15 17:34 | NUR ---
CALLED [facility] TO [facility], THEY WILL CONTACT SCREENER TO COME EVAL PT.
--- NOTE | 2024-10-15 19:21 | NUR ---
KAYLI TAMAYO SCREENWALLY RAY AT BEDSIDE TO SCREEN PATIENT
--- NOTE | 2024-10-15 19:23 | NUR ---
PATIENT ADVISES HIS BLOOD SUGAR MONITOR IS READING 62, PATIENT GIVEN SANDWICH, CRACKERS, PEANUTBUTTER, APPLESAUCE, AND ORANGE JUICE. TOLERATED WELL
--- NOTE | 2024-10-15 21:02 | NUR ---
SCREENWALLY RAY ADVISES PATIENT DOES NOT MEET INPATIENT TREATMENT CRITERIA
[2024-10-15 21:11] LABS: APPEARANCE,URINE CLEAR (CLEAR); GLUCOSE, URINE (UA) NEGATIVE (NEGATIVE); LEUKOCYTE ESTERASE ,URINE NEGATIVE Leu/uL (NEGATIVE); NITRATE,URINE NEGATIVE (NEGATIVE); OCCULT BLOOD,URINE +- (TRACE) (NEGATIVE)
[2024-10-15 21:12] LABS: ADD UA MICROSCOPIC YES
[2024-10-15 21:16] LABS: SQUAMOUS EPITHELIAL CELL,UR RARE /HPF (0-2)
[2024-10-15 21:19] LABS: AMPHET/METH SCREEN,URINE NEGATIVE (NEGATIVE); BARBITURATE SCREEN, URINE NEGATIVE (NEGATIVE); CANNABINOID SCREEN,URINE NEGATIVE (NEGATIVE); COCAINE SCREEN,URINE NEGATIVE (NEGATIVE)
--- NOTE | 2024-10-15 21:24 | ERN ---
ED Note History of Present Illness Stated Complaint: HALLUCINATIONS Chief Complaint: Halluciations Time Seen by MD: 16:56 Time Seen by Midlevel: 17:00 Dictation: 74-year-old male brought in via EMS for hallucinations. Patient was screaming and yelling outside his home, his neighbors called EMS. On arrival to the emergency room patient is awake alert and oriented x4. Isn't having any SI or HI. Isn't having any hallucinations. Denies having any trauma. Allergies: Coded Allergies: Penicillins (Verified Allergy, 04/02/12) Home Meds Active Scripts Prednisone (Prednisone) 20 Mg Tablet, 2 TAB PO DAILY for 5 Days, #10 TAB 0 Refills Prov:ALY MOSLEY 08/17/24 Reported Medications Bupropion HCl (Bupropion HCl) 100 Mg Tablet, 150 MG PO AM, TAB 09/19/24 Albuterol Sulfate (Albuterol Sulfate) 2.5 Mg/3 Ml (0.083 %) Vial.neb, 1 VIAL Q6HPRN PRN for WHEEZING 08/12/24 Nitroglycerin (Nitroglycerin) 0.4 Mg Tab.subl, 1 TAB SL AD for chest pain, #25 TAB 0 Refills 1st sign of attack; may repeat every 5 mins; if pain persists after 3 in 15 min, medical attention is recommended 08/10/24 Insulin Glargine,Hum.rec.anlog (Lantus) 100 Unit/Ml Inj, 50 UNITS SQ HS, ML 08/10/24 Metoprolol Tartrate (Metoprolol Tartrate) 25 Mg Tablet, 0.5 TAB PO BID for 30 Days, #60 TAB 0 Refills 08/10/24 Sertraline HCl (Sertraline HCl) 100 Mg Tablet, 1 TAB PO HS for 30 Days, #30 TAB 0 Refills 08/10/24 Atorvastatin Calcium (LIPITOR) 20 Mg Tab, 1 TAB PO DAILY for 30 Days, #30 TAB 0 Refills 08/10/24 Famotidine (Famotidine) 20 Mg Tablet, 1 TAB PO HS for 30 Days, #60 TAB 0 Refills 08/10/24 Amantadine HCl (Amantadine) 100 Mg Capsule, 1 CAP PO BID for 30 Days, #60 CAP 0 Refills 08/10/24 Lisinopril (Lisinopril) 2.5 Mg Tablet, 1 TAB PO DAILY for 30 Days, #30 TAB 0 Refills 08/10/24 Apixaban (Eliquis) 5 Mg Tablet, 1 TAB PO BID for 30 Days, #60 TAB 0 Refills 08/10/24 Past Medical History Past Medical History: COPD, Depression, High Cholesterol, Hypertension Surgical History: CABG Surgical History Other: TOE AMPUTATION Social History: Smokers, Lives with family Review of System Dictation Constitutional: Negative for fever,chills, and weight loss Eyes: Negative for injury, pain,redness, and discharge ENT: Negative for injury,pain or swelling Cardiovascular: Negative for chest pain, palpitations, and edema Respiratory: Negative for shortness of breath, cough, and wheezing, Abdomen/GI: Negative for abdominal pain, nausea, vomiting, diarrhea, and constipation Back: Negative for injury and pain : Negative for injury, bleeding and discharge MS/Extremity: Negative for injury and deformity Skin: Negative for rash, and discoloration Neuro: Negative for headache, weakness, numbness, tingling, and seizure Psych: Negative for suicide ideation, homicidal ideation, and hallucinations Review of Systems: was completed Initial Vital Sign VS Vital Signs Date Time Temp Pulse Resp B/P (MAP) Pulse Ox O2 Delivery O2 Flow Rate FiO2 10/15/24 16:28 98.2 96 20 134/63 97 Nasal Cannula 2.0 10/15/24 17:49 36 Physical Exam Dictation General: awake, alert, NAD Head/Face: Normocephalic, atraumatic Eyes: PERRL, EOMI, vision at baseline ENT: oral cavity clear, TMs clear, no signs of infection Neck: Trachea midline, supple, no nuchal rigidity Cardiovascular: RRR, normal S1/S2, No MRGs, no JVD Respiratory: CTAB, no respiratory distress, No rales or wheezes Abdomen: Soft, non-tender, non-distended, normal bowel sounds, no guarding or rebound. Skin: Warm, dry, normal turgor, no rash MS/Extremity: Pulses equal, no cyanosis, neurovascular intact, FROM Neuro: COAx4, GCS 15, strength 5/5, CN 2-12 intact, normal cerebellar exam, normal gait, Psych: Normal behavior, mood, and affect normal Results (Laboratory/Radiology) Laboratory/Radiology Laboratory Tests Test 10/15/24 16:35 10/15/24 21:01 10/15/24 21:07 White Blood Count 4.5 K/uL (4.8-10.8) L Red Blood Count 3.96 MIL/uL (4.50-6.20) L Hemoglobin 11.5 g/dL (14.0-18.0) L Hematocrit 34.5 % (42-54) L Mean Corpuscular Volume 87.1 fL (79-99) Mean Corpuscular Hemoglobin 29.0 pg (27.0-33.0) Mean Corpuscular Hemoglobin Concent 33.3 g/dL (32.0-36.0) Red Cell Distribution Width 14.5 % (11.0-15.5) Platelet Count 120 K/uL (130-400) L Mean Platelet Volume 10.1 fL (7.5-10.5) Immature Granulocyte % (Auto) 0.4 % (0-1) Neutrophils (%) (Auto) 65.2 % (40.0-77.0) Lymphocytes (%) (Auto) 20.5 % (21.0-51.0) L Monocytes (%) (Auto) 10.8 % (3.0-13.0) Eosinophils (%) (Auto) 2.2 % (0.0-8.0) Basophils (%) (Auto) 0.9 % (0.0-5.0) Neutrophils # (Auto) 3.0 K/uL (1.8-7.7) Lymphocytes # (Auto) 0.9 K/uL (1.0-4.8) L Monocytes # (Auto) 0.5 K/uL (0.1-1.0) Eosinophils # (Auto) 0.10 K/uL (0.00-0.70) Basophils # (Auto) 0.04 K/uL (0.00-0.20) Absolute Immature Granulocyte (auto 0.02 K/uL (0-1) Nucleated Red Blood Cells 0.0 % (0.0-0.19) Sodium Level 145 mmol/L (136-145) Potassium Level 4.6 mmol/L (3.5-5.1) Chloride Level 107 mmol/L (101-111) Carbon Dioxide Level 31 mmol/L (21-32) Blood Urea Nitrogen 26 mg/dL (7-18) H Creatinine 1.0 mg/dL (0.5-1.3) Glomerular Filtration Rate Calc 79 mL/min (>90) Random Glucose 70 mg/dL (70-105) Total Calcium 9.1 mg/dL (8.5-10.1) Salicylates Level < 2.8 mg/dL (2.8-20.0) L Acetaminophen Level < 1 mcg/mL (10-29) L Serum Alcohol < 3 mg/dL (0-10) Urine Color YELLOW (YELLOW) Urine Appearance CLEAR (CLEAR) Urine pH 6.0 (5.0-8.0) Urine Specific [place] 1.020 (1.001-1.031) Urine Protein 10 mg/dL (NEGATIVE) H Urine Glucose (UA) NEGATIVE mg/dL (NEGATIVE) Urine Ketones NEGATIVE mg/dL (NEGATIVE) Urine Occult Blood +- (TRACE) (NEGATIVE) H Urine Nitrate NEGATIVE (NEGATIVE) Urine Bilirubin NEGATIVE mg/dL (NEGATIVE) Urine Urobilinogen 3 mg/dL (0.2-1.0) H Urine Leukocyte Esterase NEGATIVE [place]/uL Urine RBC 11-25 /HPF (0-1) H Urine WBC 0-1 /HPF (0-1) Urine Squamous Epithelial Cells RARE /HPF (0-2) Urine Bacteria None /HPF (None Seen) Urine Opiates Screen NEGATIVE (NEGATIVE) Urine Barbiturates Screen NEGATIVE (NEGATIVE) Urine Phencyclidine Screen NEGATIVE (NEGATIVE) Urine Amphetamines Screen NEGATIVE (NEGATIVE) Urine Benzodiazepines Screen NEGATIVE (NEGATIVE) Urine Cocaine Screen NEGATIVE (NEGATIVE) Urine Marijuana (THC) Screen NEGATIVE (NEGATIVE) Whole Blood Glucose 105 MG/DL (70-110) Labs Reviewed?: Yes ED Course ED Course Orders Procedure Category Date Status Time Cbc With Differential LAB 10/15/24 Complete 16:27 Basic Metabolic Panel LAB 10/15/24 Complete 16:27 Acetaminophen LAB 10/15/24 Complete 16:27 Salicylate LAB 10/15/24 Complete 16:27 Alcohol, Blood LAB 10/15/24 Complete 16:27 Urinalysis Profile LAB 10/15/24 Complete 16:27 Drug Screen Urine LAB 10/15/24 Complete 16:27 12 Lead Ekg Tracing- EKG 10/15/24 Logged Technical 16:56 Bedside Glucose CPOE 10/15/24 Transmitted Fingerstick 21:01 Ammonia LAB 10/15/24 Logged 21:17 12 Lead Ekg Tracing- EKG 10/15/24 Logged Technical 21:20 Chest 1vw RAD 10/15/24 Logged 21:20 Vital Signs Date Time Temp Pulse Resp B/P (MAP) Pulse Ox O2 Delivery O2 Flow Rate FiO2 10/15/24 21:02 98.4 77 18 143/79 99 Room Air* 0 21 10/15/24 17:49 97.5 62 19 149/78 100 Nasal Cannula* 4 36 10/15/24 16:28 98.2 96 20 134/63 97 Nasal Cannula 2.0 Medical Decision Making MDM MDM: 74-year-old male brought in via EMS for hallucinations. Patient was screaming and yelling outside his home, his neighbors called EMS. On arrival to the emergency room patient is awake alert and oriented x4. Isn't having any SI or HI. Isn't having any hallucinations. Denies having any trauma.CBC shows leukocytopenia, normocytic anemia, hemoglobin of 11 and hematocrit of 34. Platelet count is 120. These findings are all seemed to be patient's baseline. As they are all present in the previous admissions. Chemistry unremarkable. Normal creatinine. Patient had an episode of hypoglycemia here in the ER, in the 60s. Patient was given crackers and orange juice. Went up to 105.. He took all his medications including his diabetic medication but has not eaten all day. This could be what attributed to his had hallucinations earlier throughout the day. Toxicology is normal. And UA shows no evidence of urinary tract infection. On reassessment patient states he feels good. However patient s tates he rather be admitted under observation as he does not feel comfortable going home at this time. Patient was evaluated by tropical, did not meet criteria for inpatient. Spoke to Mariella LUIS, ok to admit Differential diagnosis: Hallucinations, dehydration, hypoglycemia Rationale: Tests considered and ordered secondary to shared decision making include: labs, ECG and radiology Previous outside records reviewed: Old ER visits. Risk of complication and/or morbidity or mortality of patient management: None Medications-Per medication reconciliation Need for hospitalization: Patient does meet criteria for hospitalization. Need for emergency major/minor surgery: No There are no social concerns with this patient. Prescription drug management Prescriptions will include symptomatic care Patient's prior external medical records from other ER visits were reviewed by me as indicated. Prior testing and results from previous visits were reviewed. Prior tests were taken into account with medical decision making and resource utilization, independent historian/historians were used to obtain complete medical history. I independently interpreted the test that were performed, results were reviewed by me and considered findings on radiology if ordered. Medical management and examination interpretation discussions were had by me with other qualified healthcare professionals as indicated for the patient's care. DX & DISP Disposition: Inpatient Decision to Admit Date: Oct 15, 2024 Departure Impression: Primary Impression: Hypoglycemia Additional Impression: AMS (altered mental status) Condition: Stable Referrals: TASIA CARSON M.D. (PCP) I have reviewed the case, and I agree with, Diagnosis and Plan DELMY ARMSTRONG NP Oct 15, 2024 21:24
--- NOTE | 2024-10-15 21:29 | HP ---
[facility] HISTORY [facility] PHYSICAL Date Patient Seen: Oct 15, 2024 Time of Visit: 21:29 Supervising Physician: Dr. Varela Primary Care Physician: Dr. Maria Teresa Paiz Outpatient Specialists: Inpatient Consults: PROBLEM LIST: Hypoglycemia, POA Altered mental status/hallucinations,, POA, suspected hypoglycemia Pancytopenia Dehydration Acute kidney injury, GFR 79 Acute on chronic kidney disease, (GFR 97 on 09/23/24) Proteinuria, hematuria, urobilinogenuria, per UA on 08/15/2024 COPD without exacerbation Hypertension CAD s/p CABG PVD Hypercholesteremia Depression Toe amputation Tobacco dependence HPI: Mr. Oquendo is a 74-year-old male with a history of a COPD, hypertension, hyperlipidemia, depression, PVD s/p toe amputation, CAD, s/p CABG who presented to ED via via EMS for evaluation of hallucinations. Per EMS the patient was screaming and yelling outside his home, his neighbors called EMS. On arrival to the emergency room patient is awake, alert and oriented x4, denied any hallucinations, SI or HI, trauma, dizziness, headache, chest pain, shortness of breath, any other pain, problem or concern. The patient arrived with a blood pressure 134/63, heart rate 96, respirations 20, 97% on2 L nasal cannula, 98.2 F. WBCs 4.5 Ammonia 12, glucose 70 on arrival, drug screen was negative. ED provider reports that tropical screener was called and that tropical screeners stated that patient does not meet criteria. While the patient was being screened the patient's continuous glucometer machine system alerted that the blood glucose was in the 60s. No medications administered in ED. The patient was administered crackers and orange juice with improvement of glucose 05/04/2004. ED provider reported the patient lives alone, and that the patient stated does not feel comfortable going home therefore request patient be admitted with the diagnosis of hypoglycemia and AMS. I assessed the patient at bedside in hallway D1. the patient was sleeping, breathing was even, unlabored, in no distress. Patient woke up to voice. The patient was awake, alert, oriented x3. No neuro deficits noted. The patient continued to deny hallucinations, SI, and HI. Oral mucosa was dry. Informed the patient of labs, diagnostics, and plan of care. The patient verbalized und erstanding and is in agreement with the plan. Plan and assessment are listed below. PAST MEDICAL HX: see above PAST SURGICAL HX: CABG, toe amputation SOCIAL HISTORY: No tobacco, ETOH, or illicit drug use Coded Allergies: Penicillins (Verified Allergy, 04/02/12) REVIEW OF SYSTEMS: 12 point ROS reviewed with patient. Pertinent positives mentioned above. Otherwise negative. PHYSICAL EXAM: GENERAL: Alert, awake oriented x 3 HEENT: EOMI, Sclera non icteric, dry oral mucosa. NECK: Supple, no JVD, trachea midline LUNGS: Clear breath sounds bilaterally. No wheezes HEART: Regular rate and rhythm. Normal S1 and S2, without murmurs ABD: Abdomen soft, nontender. Bowel sounds present EXT: No clubbing cyanosis or edema NEURO: Alert and oriented X3, follows commands Vital Signs (last 8hr) Date Time Temp Pulse Resp B/P (MAP) Pulse Ox O2 Delivery O2 Flow Rate FiO2 10/15/24 21:02 98.4 77 18 143/79 99 Room Air* 0 21 10/15/24 17:49 97.5 62 19 149/78 100 Nasal Cannula* 4 36 10/15/24 16:28 98.2 96 20 134/63 97 Nasal Cannula 2.0 LABS: Hematology Labs: Test 10/15/24 16:35 Range/Units White Blood Count 4.5 L 4.8-10.8 K/uL Red Blood Count 3.96 L 4.50-6.20 MIL/uL Hemoglobin 11.5 L 14.0-18.0 g/dL Hematocrit 34.5 L 42-54 % Mean Corpuscular Volume 87.1 79-99 fL Mean Corpuscular Hemoglobin 29.0 27.0-33.0 pg Mean Corpuscular Hemoglobin Concent 33.3 32.0-36.0 g/dL Red Cell Distribution Width 14.5 11.0-15.5 % Platelet Count 120 L 130-400 K/uL Mean Platelet Volume 10.1 7.5-10.5 fL Immature Granulocyte % (Auto) 0.4 0-1 % Neutrophils (%) (Auto) 65.2 40.0-77.0 % Lymphocytes (%) (Auto) 20.5 L 21.0-51.0 % Monocytes (%) (Auto) 10.8 3.0-13.0 % Eosinophils (%) (Auto) 2.2 0.0-8.0 % Basophils (%) (Auto) 0.9 0.0-5.0 % Neutrophils # (Auto) 3.0 1.8-7.7 K/uL Lymphocytes # (Auto) 0.9 L 1.0-4.8 K/uL Monocytes # (Auto) 0.5 0.1-1.0 K/uL Eosinophils # (Auto) 0.10 0.00-0.70 K/uL Basophils # (Auto) 0.04 0.00-0.20 K/uL Absolute Immature Granulocyte (auto 0.02 0-1 K/uL Nucleated Red Blood Cells 0.0 0.0-0.19 % Chemistry Labs: Test 10/15/24 21:07 10/15/24 16:35 Range/Units Whole Blood Glucose 105 70-110 MG/DL Sodium Level 145 136-145 mmol/L Potassium Level 4.6 3.5-5.1 mmol/L Chloride Level 107 101-111 mmol/L Carbon Dioxide Level 31 21-32 mmol/L Blood Urea Nitrogen 26 H 7-18 mg/dL Creatinine 1.0 0.5-1.3 mg/dL Glomerular Filtration Rate Calc 79 >90 mL/min Random Glucose 70 70-105 mg/dL Total Calcium 9.1 8.5-10.1 mg/dL DIAGNOSTICS / RADIOLOGY RESULTS: [ ] PLAN Admit to medical floor with telemetry monitoring and fall precautions. Obtain CT of the head. Glucometer checks Q 3 hours. Permissive hyperglycemia, no insulin coverage for now. Taylor was consulted by ED. Per ED tropical reported patient does not meet criteria for psych admission. NS 250 at 75 mL an hour. Nicotine 14 mg patch daily. P.r.n. medications for: Pain management, fever, hypertension, nausea, vomiting, constipation Blood pressure checks every4 hours and as needed. Reconcile home medications once available. Monitor renal and liver function. Monitor electrolytes and treat accordingly. A.m. labs. GI and DVT prophylaxis. Four their orders/plan per hospitalization course. NEURO: Minimize central acting medications as possible. Maintain fall precautions, adequate lighting during the day PULMONARY: Supplemental 02 as needed. Maintain aspiration precautions at all times CARDIOVASCULAR: Follow hemodynamics. Vital signs per facility protocol GI & NUTRITION: Continue with nutritional support. Continue stool softeners and laxatives as needed. KIDNEYS & ELECTROLYTES: Strict monitoring of intake, output and overall fluid balance. Avoid nephrotoxic medications to the extent possible. Medications to be dosed according to renal function. Monitor electrolytes and replace as needed ENDOCRINE: Maintain blood glucose between 100-180 at all times. Hypoglycemia protocol in place INFECTIOUS DISEASE: Trend temperature, WBC and procalcitonin level Follow cultures, deescalate antibiotics as soon as possible. Panculture if new onset fever ONCOLOGY/HEMATOLOGY/COAGULATION: Monitor for s/s of bleeding Monitor hemoglobin, coagulation studies as needed SKIN: Pressure ulcer prevention per facility protocol Specialty mattress ORTHO/REHAB: Continue PT/OT Prophylaxis: Continue GI and DVT prophylaxis Code Status: Full Resuscitation Disposition: KUSHAL LUCIO NEEDLE MOLDER Oct 15, 2024 21:29
[2024-10-15] MEDS: ENOXAPARIN SODIUM 40 MG/0.4 ML SYRINGE SQ SCH (21:52)
[2024-10-16] MEDS: 0.9% NACL 250ML 250 ML IV SCH (00:20)
--- NOTE | 2024-10-16 00:59 | HMCIMG ---
EXAM: CR Chest, 1 view CLINICAL HISTORY: Shortness of breath. COMPARISON: Chest radiograph dated 09/19/2024. FINDINGS: Hyperinflated lungs, likely mild COPD. The lungs show no infiltrates or other acute findings. No pleural effusion or pneumothorax. The cardiomediastinal silhouette is within normal limits. Status poststernotomy. No acute osseous abnormality. IMPRESSION: No acute cardiopulmonary process is evident. Mild COPD. No interval changes. /[place]
--- NOTE | 2024-10-16 02:07 | HMCIMG ---
EXAM: Non-contrast CT examination of the Brain CLINICAL HISTORY: Altered mental status. TECHNIQUE: Thin collimated axial CT images of the brain were obtained, with sagittal and coronal reformatted images also submitted. A CT scan was done according to ALARA (As low as reasonably achievable). CONTRAST USED: None. COMPARISON: CT scan of the brain. 09/19/2024. FINDINGS: No acute intracranial abnormality is present. Mild small vessel chronic ischemic changes in bilateral cerebral white matter. No acute cortical infarction, hemorrhage, mass, or mass effect. There is mild prominence of the ventricles, cisterns, and sulci. No hydrocephalus or abnormal extra-axial fluid collections. The posterior fossa is unremarkable. The skull base and calvarium are intact. The included portions of the paranasal sinuses and mastoid air cells are clear. IMPRESSION: No acute intracranial abnormality is present. Mild small vessel chronic ischemic changes in bilateral cerebral white matter. Age-related cerebral atrophy. No new findings. /[place]
[2024-10-16] MEDS ORDERED: BUPR-74 PO (02:36)
[2024-10-16] MEDS ORDERED: DOXY100C5 PO (02:36)
[2024-10-16 02:45] LABS: SARS-CoV-2, RNA, NAAT NEGATIVE SARS CoV-2 (NEGATIVE)
[2024-10-16 02:51] LABS: INFLUENZA TYPE A Negative For Type A (NEGATIVE); INFLUENZA TYPE B Negative For Type B (NEGATIVE)
[2024-10-16] MEDS ORDERED: MAGNESIUM 2GM PREMIX 50ML 50 ML IV PRN (03:00)
[2024-10-16] MEDS ORDERED: DEXTROSE 50%-WATER 50 ML DISP.SYRIN IV PRN (03:00)
[2024-10-16] MEDS ORDERED: PoTASSium chloRIDE 20MEQ ER 20 MEQ ERTAB PO PRN (03:00)
[2024-10-16] MEDS ORDERED: GLUCAGON 1MG KIT 1 MG ML IM PRN (03:00)
[2024-10-16] MEDS ORDERED: PoTASSium chl 10% ELIXIR 20MEQ 20 MEQ/15 ML UDCUP PO PRN (03:00)
[2024-10-16] MEDS: NICOTINE 14 MG/ 24 HR PATCH TD SCH (03:48)
[2024-10-16 07:14] LABS: NUCLEATED RED BLOOD CELLS 0.0 % (0.0-0.19); PLATELET COUNT (AUTO) 118.0 K/uL (130-400); RED BLOOD CELL COUNT(AUTO) 4.08 MIL/uL (4.50-6.20); RED CELL DISTRIBUTION WIDTH 14.4 % (11.0-15.5); WHITE BLOOD COUNT (AUTO) 3.2 K/uL (4.8-10.8)
--- NOTE | 2024-10-16 07:21 | EKG ---
[facility] Test Date: 2024-10-15 Test Time: 17:40:36 Pat Name: MARLO SHETTY Department: [facility] Room: 423 Gender: M Babysitter: [id number] : 1950 Requested By: DELMY ARMSTRONG Order Number: [id number] Reading MD: Beltran Onofre Measurements Intervals [place] Rate: 60 P: 109 GA: 156 QRS: 82 QRSD: 107 T: 67 QT: 414 QTc: 415 Interpretive Statements Sinus rhythm Compared to ECG 09/20/2024 03:10:28 Atrial premature complex(es) no longer present ST (T wave) deviation no longer present Electronically Signed On 10-16-2024 23:37:00 CDT by Beltran Onofre Please click the below link to view image of tracing.
[2024-10-16 07:30] LABS: ASPARTATE AMINOTRANSFERASE 12.0 U/L (10-37); CREATININE 0.7 mg/dL (0.5-1.3); GLOMERULAR FILTR. RATE CALC 97.0 mL/min (>90); GLUCOSE,RANDOM 64.0 mg/dL (70-105); SODIUM SERUM 144.0 mmol/L (136-145); TOTAL PROTEIN, SERUM 6.5 g/dL (6.0-8.3); UREA NITROGEN, BLOOD 17.0 mg/dL (7-18)
[2024-10-16 07:35] LABS: CREATININE 0.7 mg/dL (0.5-1.3); GLOMERULAR FILTR. RATE CALC 97.0 mL/min (>90); GLUCOSE,RANDOM 65.0 mg/dL (70-105); PHOSPHORUS 4.3 mg/dL (2.5-4.9); SODIUM SERUM 145.0 mmol/L (136-145); UREA NITROGEN, BLOOD 18.0 mg/dL (7-18)
--- NOTE | 2024-10-16 17:38 | PN ---
[facility] PROGRESS NOTE Date Patient Seen: Oct 16, 2024 Time of Visit: 1332 Supervising Physician: Dr. Varela Primary Care Physician: Dr. 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 Patient is awake alert able to answer simple questions appropriately. Patient denies any chest pain or shortness of breadth. Denies any nausea vomiting or abdominal pain. Patient currently on2 L nasal cannula appears to be tolerating well. Patient does use home oxygen this is patient's baseline. Patient did note to have a blood glucose of 64 we will continue to monitor closely. We will repeat patient's labs tomorrow morning if no acute events occurred overnight plan is for discharge tomorrow morning REVIEW OF SYSTEMS: 12 point ROS reviewed with patient. Pertinent positives mentioned above. Otherwise negative. PHYSICAL EXAM: GENERAL: Alert, awake oriented x 3 HEENT: EOMI, Sclera non icteric, dry oral mucosa. NECK: Supple, no JVD, trachea midline LUNGS: Clear breath sounds bilaterally. No wheezes HEART: Regular rate and rhythm. Normal S1 and S2, without murmurs ABD: Abdomen soft, nontender. Bowel sounds present EXT: No clubbing cyanosis or edema NEURO: Alert and oriented X3, follows commands LABS: Hematology Labs: Test 10/16/24 06:40 10/15/24 16:35 Range/Units White Blood Count 3.2 #L 4.8-10.8 K/uL Red Blood Count 4.08 L 4.50-6.20 MIL/uL Hemoglobin 11.8 L 14.0-18.0 g/dL Hematocrit 35.7 L 42-54 % Mean Corpuscular Volume 87.5 79-99 fL Mean Corpuscular Hemoglobin 28.9 27.0-33.0 pg Mean Corpuscular Hemoglobin Concent 33.1 32.0-36.0 g/dL Red Cell Distribution Width 14.4 11.0-15.5 % Platelet Count 118 L 130-400 K/uL Mean Platelet Volume 10.3 7.5-10.5 fL Nucleated Red Blood Cells 0.0 0.0-0.19 % Immature Granulocyte % (Auto) 0.4 0-1 % Neutrophils (%) (Auto) 65.2 40.0-77.0 % Lymphocytes (%) (Auto) 20.5 L 21.0-51.0 % Monocytes (%) (Auto) 10.8 3.0-13.0 % Eosinophils (%) (Auto) 2.2 0.0-8.0 % Basophils (%) (Auto) 0.9 0.0-5.0 % Neutrophils # (Auto) 3.0 1.8-7.7 K/uL Lymphocytes # (Auto) 0.9 L 1.0-4.8 K/uL Monocytes # (Auto) 0.5 0.1-1.0 K/uL Eosinophils # (Auto) 0.10 0.00-0.70 K/uL Basophils # (Auto) 0.04 0.00-0.20 K/uL Absolute Immature Granulocyte (auto 0.02 0-1 K/uL Chemistry Labs: Test 10/16/24 06:40 10/16/24 02:26 10/15/24 21:25 Range/Units Sodium Level 144 136-145 mmol/L Potassium Level 4.1 3.5-5.1 mmol/L Chloride Level 106 101-111 mmol/L Carbon Dioxide Level 34 H 21-32 mmol/L Blood Urea Nitrogen 17 7-18 mg/dL Creatinine 0.7 0.5-1.3 mg/dL Glomerular Filtration Rate Calc 97 >90 mL/min Random Glucose 64 L 70-105 mg/dL Hemoglobin A1c 6.8 H 4.0-6.0 % Estimated Average Glucose (eAG) 148 H 70-126 mg/dL Total Calcium 8.9 8.5-10.1 mg/dL Phosphorus Level 4.3 2.5-4.9 mg/dL Magnesium Level 1.80 1.80-2.40 mg/dL Total Bilirubin 0.7 0.2-1.0 mg/dL Aspartate Amino Transf (AST/SGOT) 12 10-37 U/L Alanine Aminotransferase (ALT/SGPT) 16 12-78 U/L Alkaline Phosphatase 74 50-136 U/L Total Protein 6.5 6.0-8.3 g/dL Albumin 3.2 L 3.5-5.0 g/dL Thyroid Stimulating Hormone (TSH) 0.02 #L 0.36-3.74 uIU/mL Whole Blood Glucose 98 70-110 MG/DL Ammonia 12 11-32 umol/L DIAGNOSTICS / RADIOLOGY RESULTS: na PLAN Continue with Accu-Cheks t.i.d. Permissive hyperglycemia, no insulin coverage for now. Taylor was consulted by ED. Per ED tropical reported patient does not meet criteria for psych admission. Discontinue IV fluids Nicotine 14 mg patch daily. P.r.n. medications for: Pain management, fever, hypertension, nausea, vomiting, constipation Blood pressure checks every4 hours and as needed. Reconcile home medications once available. Monitor renal and liver function. Monitor electrolytes and treat accordingly. A.m. labs. GI and DVT prophylaxis. Four their orders/plan per hospitalization course. NEURO: Minimize central acting medications as possible. Maintain fall precautions, adequate lighting during the day PULMONARY: Supplemental 02 as needed. Maintain aspiration precautions at all times CARDIOVASCULAR: Follow hemodynamics. Vital signs per facility protocol GI & NUTRITION: Continue with nutritional support. Continue stool softeners and laxatives as needed. KIDNEYS & ELECTROLYTES: Strict monitoring of intake, output and overall fluid balance. Avoid nephrotoxic medications to the extent possible. Medications to be dosed according to renal function. Monitor electrolytes and replace as needed ENDOCRINE: Maintain blood glucose between 100-180 at all times. Hypoglycemia protocol in place INFECTIOUS DISEASE: Trend temperature, WBC and procalcitonin level Follow cultures, deescalate antibiotics as soon as possible. Panculture if new onset fever ONCOLOGY/HEMATOLOGY/COAGULATION: Monitor for s/s of bleeding Monitor hemoglobin, coagulation studies as needed SKIN: Pressure ulcer prevention per facility protocol Specialty mattress ORTHO/REHAB: Continue PT/OT Prophylaxis: Continue GI and DVT prophylaxis Code Status: Full Resuscitation Disposition: TBD Case discussed with supervising physician plan of care agreed upon CARISSA ASTUDILLO Oct 16, 2024 17:38
[2024-10-16 21:34] LABS: ABG BASE EXCESS 5.0 mmol/L (-2.0-3.0); ABG HCO3 31.2 mmol/L (21.0-28.0); ABG OXYGEN SATURATION 98.0 % (94.0-98.0); ABG PCO2 52 mmHg (35-48); ABG PH 7.395 (7.350-7.450); DEVICE COMMENT LR RN; PO2, ARTERIAL BG 111.2 mmHg (83.0-108.0); TEMPERATURE, CELSIUS BG 37.0 CELSIUS (35.5-37.0); VENT MODE, BG 4LNC (ROOM AIR)
[2024-10-16] MEDS: BUDESONIDE 0.25 MG/2 ML INH IH SCH (22:00)
[2024-10-16] MEDS: acetylCYSTeine10% 4ML VIAL IH SCH (22:00)
[2024-10-16 22:02] VITALS: PULSE 77; RESP 20; O2SAT 100
[2024-10-16] MEDS: Solu-medROL 40MG VIAL IVP SCH (22:37)
[2024-10-16 23:18] VITALS: PULSE 73; RESP 20
[2024-10-16 23:30] VITALS: O2SAT 94
[2024-10-16] MEDS ORDERED: NICOTINE 14 MG/ 24 HR PATCH TD SCH (23:55)
[2024-10-17] VITALS (7 sets, daily range): BP systolic 126–138; BP diastolic 57–67; PULSE 78–93; RESP 17–20; TEMP 97.6–98.1; O2SAT 95–99
[2024-10-17] MEDS: BUDESONIDE 0.25 MG/2 ML INH IH SCH (07:01)
[2024-10-17] MEDS: LACTULOSE 20 GM/30 ML UDCUP PO PRN (09:14)
--- NOTE | 2024-10-17 10:58 | NUR ---
DCP: PENDING SW was able to speak with linda John [phone] due to pt being asleep and not able to be awake to answer questions. Pt currently lives alone in his home. pt has a provider that goes to his home 4hrs daily to assist with home management and meals. PCP is Dr. Maria Teresa Paiz and uses [facility] for RX needs. At [place] linda states that he normally goes home however feels like pt's hallucinations are getting more intense and could use a placement. States that if he goes home then they can assist with transportation. Addendum: 10/17/24 at 1102 by TARSHA LUEVANO SS Amended: Links added.
--- NOTE | 2024-10-17 14:44 | DS ---
[facility] DISCHARGE SUMMARY Date Patient Seen: Oct 17, 2024 Time of Visit: 1147 Supervising Physician: Dr. Varela Primary Care Physician: Dr. 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 Oquendo is a 74-year-old male with a history of a COPD, hypertension, hyperlipidemia, depression, PVD s/p toe amputation, CAD, s/p CABG who presented to ED via via EMS for evaluation of hallucinations. Per EMS the patient was screaming and yelling outside his home, his neighbors called EMS. On arrival to the emergency room patient is awake, alert and oriented x4, denied any hallucinations, SI or HI, trauma, dizziness, headache, chest pain, shortness of breath, any other pain, problem or concern. The patient arrived with a blood pressure 134/63, heart rate 96, respirations 20, 97% on2 L nasal cannula, 98.2 F. WBCs 4.5 Ammonia 12, glucose 70 on arrival, drug screen was negative. ED provider reports that tropical screener was called and that tropical screeners stated that patient does not meet criteria. While the patient was being screened the patient's continuous glucometer machine system alerted that the blood glucose was in the 60s. No medications administered in ED. The patient was administered crackers and orange juice with improvement of glucose 05/04/2004. ED provider reported the patient lives alone, and that the patient stated does not feel comfortable going home therefore request patient be admitted with the diagnosis of hypoglycemia and AMS. Patient was seen and examined by bedside with primary nurse present. Patient is awake alert able to answer simple questions appropriately. Patient denies any chest pain or shortness of breadth. Denies any nausea vomiting or abdominal pain. Patient's blood sugars have remained stable no further episodes of hypoglycemia during hospitalization. Patient was taking 50 units of Lantus at home, patient was instructed to stop Lantus, we will need to follow up with PCP upon discharge within 1-2 days, to have insulin readjusted due to patient's hypoglycemic event that brought him to emergency room. Patient's voices understanding and agrees with plan has no questions at this time The patient was treated for the following problems: ACTIVE PROBLEM LIST FOR THE HOSPITALIZATION: CHRONIC PROBLEMS: continue previous management per PCP unless otherwise indicated JOCKEY'S AGENT FINDINGS/RECOMMENDATIONS: na PROCEDURES: as mentioned above DISCHARGE MEDICATIONS: Pt hemodynamically stable and afebrile at time of discharge. PCP notified of patients admission, hospital course and discharge. Continued Medications: Albuterol Sulfate (Albuterol Sulfate) 2.5 Mg/3 Ml (0.083 %) Vial.neb 1 VIAL Q6HPRN PRN for WHEEZING Amantadine HCl (Amantadine) 100 Mg Capsule 1 CAP PO BID for 30 Days, #60 CAP 0 Refills Apixaban (Eliquis) 5 Mg Tablet 1 TAB PO BID for 30 Days, #60 TAB 0 Refills Atorvastatin Calcium (Lipitor) 20 Mg Tab 1 TAB PO DAILY for 30 Days, #30 TAB 0 Refills Bupropion HCl (Bupropion HCl) 100 Mg Tablet 150 MG PO AM, TAB Bupropion HCl (Bupropion HCl Sr) 150 Mg Tablet.er 1 TAB PO DAILY for 30 Days, #30 TAB 0 Refills Famotidine (Famotidine) 20 Mg Tablet 1 TAB PO HS for 30 Days, #60 TAB 0 Refills Famotidine (Famotidine) 20 Mg Tablet 20 MG PO HS PRN for HEARTBURN, TAB Lisinopril (Lisinopril) 2.5 Mg Tablet 1 TAB PO DAILY for 30 Days, #30 TAB 0 Refills Metoprolol Tartrate (Metoprolol Tartrate) 25 Mg Tablet 0.5 TAB PO BID for 30 Days, #60 TAB 0 Refills Nitroglycerin (Nitroglycerin) 0.4 Mg Tab.subl 1 TAB SL AD for chest pain, #25 TAB 0 Refills 1st sign of attack; may repeat every 5 mins; if pain persists after 3 in 15 min, medical attention is recommended Sertraline HCl (Sertraline HCl) 100 Mg Tablet 1 TAB PO HS for 30 Days, #30 TAB 0 Refills Discontinued Medications: Doxycycline Hyclate (Doxycycline Hyclate) 100 Mg Capsule 100 MG PO QODAY, CAP Insulin Glargine,Hum.rec.anlog (Lantus) 100 Unit/Ml Inj 50 UNITS SQ HS, ML Prednisone (Prednisone) 20 Mg Tablet 2 TAB PO DAILY for 5 Days, #10 TAB 0 Refills PHYSICAL EXAM: GENERAL: Alert, awake oriented x 3 HEENT: EOMI, Sclera non icteric, dry oral mucosa. NECK: Supple, no JVD, trachea midline LUNGS: Clear breath sounds bilaterally. No wheezes HEART: Regular rate and rhythm. Normal S1 and S2, without murmurs ABD: Abdomen soft, nontender. Bowel sounds present EXT: No clubbing cyanosis or edema NEURO: Alert and oriented X3, follows commands FOLLOW-UP: Follow-up with PCP in 2-3 days RECOMMENDATIONS: See Discharge Instructions This case was seen and discussed with my supervising physician. 35 minutes spent on discharge process, including evaluation of the patient, discussion with nursing staff, medication reconciliation and follow-up appointments CARISSA ASTUDILLO Oct 17, 2024 14:44
== END 2024-10-17 16:30 | disposition home or self-care (01) ==
LOC: EDH 16:14 → EDHIP 21:26 → 4DH 10-16 23:00
PROVIDERS: ADMIT Internal Medicine; ATTEND Internal Medicine
DX: R41.82 Altered mental status, unspecified (principal); Z20.822 Contact with and (suspected) exposure to COVID-19; D61.818 Other pancytopenia; N17.9 Acute kidney failure, unspecified; I12.9 Hypertensive chronic kidney disease with stage 1 through stage 4 chronic kidney disease, or unspecified chronic kidney disease; N18.9 Chronic kidney disease, unspecified; J44.9 Chronic obstructive pulmonary disease, unspecified; I25.10 Atherosclerotic heart disease of native coronary artery without angina pectoris; I73.9 Peripheral vascular disease, unspecified; E78.00 Pure hypercholesterolemia, unspecified; F32.A Depression, unspecified; E16.2 Hypoglycemia, unspecified; D72.819 Decreased white blood cell count, unspecified; R80.9 Proteinuria, unspecified; E86.0 Dehydration; F17.200 Nicotine dependence, unspecified, uncomplicated; Z88.0 Allergy status to penicillin; Z79.899 Other long term (current) drug therapy; Z95.1 Presence of aortocoronary bypass graft; Z89.429 Acquired absence of other toe(s), unspecified side; Z79.4 Long term (current) use of insulin
CPT/HCPCS: 96372 ×2; 99285; 80048; 80305; 82140; 85025; 82948 ×7; 81001; 36415 ×2; 71045; 70450; 93005; 96374; 83036; 84443; 83735; 84100; 80053; 82803; 85027; 87804 ×2; 87635; 36600; 96376; 94640; G0378 ×43; G0481; J1650 ×3; J2919 ×2; J7608 ×4; J7050; J1815 ×2; 94664